=== PATIENT | male | born 1940 | race African-American/Black ===

== ENCOUNTER → 2016-12-22 | Outpatient (CLI) | payer OTHER ==
[~2016-12-22] MED LIST: GADOBUTROL 10 ML VIAL IVP ONE
== END ==
LOC: FIMAGING 09:52
PROVIDERS: ATTEND Internal Medicine Hematology & Oncology
DX: Z85.72 Personal history of non-Hodgkin lymphomas (principal); Z92.21 Personal history of antineoplastic chemotherapy; Z92.3 Personal history of irradiation
CPT/HCPCS: 70553; A9585

== ENCOUNTER → 2017-03-20 | Outpatient (CLI) | payer OTHER ==
[2017-03-20 08:53] LABS: GLOMERULAR FILTRATION RATE > 60
== END ==
LOC: FIMAGING 07:29
PROVIDERS: ATTEND Internal Medicine Hematology & Oncology
DX: G93.89 Other specified disorders of brain (principal); C85.89 Other specified types of non-Hodgkin lymphoma, extranodal and solid organ sites; C83.39 Diffuse large B-cell lymphoma, extranodal and solid organ sites
CPT/HCPCS: 70553; A9585; J1642

== ENCOUNTER → 2017-03-28 | Outpatient (CLI) | payer OTHER | LOC: BHFA 14:00 | PROVIDERS: ATTEND Internal Medicine Cardiovascular Disease | DX: I48.0 Paroxysmal atrial fibrillation (principal); I45.10 Unspecified right bundle-branch block ==

== ENCOUNTER → 2017-04-11 | Outpatient (CLI) | payer OTHER | LOC: BHFA 08:30 | PROVIDERS: ATTEND Internal Medicine | DX: I48.91 Unspecified atrial fibrillation (principal) ==

== ENCOUNTER → 2017-06-18 | Outpatient (CLI) | payer OTHER | LOC: FIMAGING 08:35 | PROVIDERS: ATTEND Internal Medicine Hematology & Oncology | DX: C85.90 Non-Hodgkin lymphoma, unspecified, unspecified site (principal) | CPT/HCPCS: 70553; A9585 ==

== ENCOUNTER → 2017-09-18 | Outpatient (CLI) | payer OTHER | LOC: FIMAGING 12:36 | PROVIDERS: ATTEND Internal Medicine Hematology & Oncology | DX: C85.89 Other specified types of non-Hodgkin lymphoma, extranodal and solid organ sites (principal); G93.89 Other specified disorders of brain | CPT/HCPCS: 70553; A9585 ==

== ENCOUNTER → 2018-03-19 | Outpatient (CLI) | payer OTHER | LOC: FIMAGING 07:49 | PROVIDERS: ATTEND Internal Medicine Hematology & Oncology | DX: G31.9 Degenerative disease of nervous system, unspecified (principal); G93.89 Other specified disorders of brain; C85.89 Other specified types of non-Hodgkin lymphoma, extranodal and solid organ sites; C79.31 Secondary malignant neoplasm of brain | CPT/HCPCS: 70553; A9585; J1642 ==

== ENCOUNTER → 2018-05-15 | Outpatient (CLI) | payer OTHER | LOC: BHFA 14:45 | PROVIDERS: ATTEND Internal Medicine Cardiovascular Disease | DX: I48.91 Unspecified atrial fibrillation (principal); I45.10 Unspecified right bundle-branch block ==

== ENCOUNTER → 2018-07-17 | Outpatient (CLI) | payer OTHER | LOC: BMCIMAGING 13:50 | PROVIDERS: ATTEND Orthopaedic Surgery | DX: M17.11 Unilateral primary osteoarthritis, right knee (principal); M25.761 Osteophyte, right knee; M71.21 Synovial cyst of popliteal space [Baker], right knee ==

== ENCOUNTER → 2018-08-14 | Outpatient (CLI) | payer OTHER | LOC: FIMAGING 10:00 | PROVIDERS: ATTEND Orthopaedic Surgery | DX: M17.11 Unilateral primary osteoarthritis, right knee (principal) ==

== ENCOUNTER 2018-08-30 05:48 | Inpatient (IN) | payer OTHER ==
[2018-08-30] MEDS ORDERED: TRANEXAMIC ACID 2,000 MG in NS 100 ML IV ONE (06:00)
[2018-08-30] MEDS ORDERED: ROPIVACAINE 0.2% 80 MG, EPINEPHrine 0.2 MG, KETOROLAC TROMETHAMINE 30 MG, morphINE 10 M... IU ONE (06:00)
[2018-08-30] MEDS ORDERED: TRANEXAMIC ACID 1,000 MG in NS 100 ML IV ONE (06:00)
[2018-08-30] MEDS ORDERED: ceFAZolin 2 GM/DEXTROSE 100 ML IV ONE (06:03)
[2018-08-30] MEDS ORDERED: FAMOTIDINE 20 MG TAB PO ONE (06:03)
[2018-08-30] MEDS ORDERED: ACETAMINOPHEN 325 MG TAB PO ONE (06:03)
[2018-08-30] MEDS ORDERED: LR 1,000 ML IV ONE (06:04)
[2018-08-30] MEDS ORDERED: NS 1,000 ML IV ONE (06:11)
--- NOTE | 2018-08-30 06:14 | PDHPUP ---
History & Physical Update H&P update statement: This history and physical update is based on an assessment of the patient which was completed after admission or registration (within 24 hours), but prior to the surgery/procedure. H&P update: no change in patient's condition since H&P completed
--- NOTE | 2018-08-30 06:15 | PDIAF ---
- Diagnosis Diagnosis: right knee djd Code Status: Full Code - Medication Management Discharge Medications: Medications to Continue on Transfer Loratadine [Claritin 10 mg] 10 mg PO DAILY@12 PRN 05/16/15 [Last Taken Unknown] Multivitamins [Multivitamin (*)] 1 each PO DAILY@05/16/15 [Last Taken ] Tamsulosin HCl [Flomax 0.4 MG (*)] 0.8 mg PO DAILY@05/16/15 [Last Taken 05/16] Acetaminophen [Tylenol ES 500 mg (*)] 1,000 mg PO TID PRN 08/07/18 [Last Taken Unknown] Cholecalciferol Vit D3 [Vitamin D3 2000 units tab (OTC)] 2,000 units PO DAILY [Last Taken Unknown] Guaifenesin PRN 08/07/18 [Last Taken Unknown] Metoprolol Succinate 50 mg PO DAILY@12 08/07/18 [Last Taken Unknown] Warfarin Sodium [Coumadin 7.5MG (*)] 7.5 mg PO DAILY@08/07/18 [Last Taken Unknown] Discharge Medications: Refer to the Discharge Home Medication list for PRN reason. - Orders Services needed: Home Care, Physical Therapy Home Care Face to Face: I certify that this patient was under my care and that I had the required [id number] encounter meeting the encounter requirements on the discharge day. My findings support the fact that the patient is homebound as defined in Home Care Face to Face Continued: CMS Chapter 7 Medicare Benefits Manual 30.1.1 , The condition of the patient is such that there exists a normal inability to leave home and consequently, leaving home would require a considerable and taxing effort. Isolation Type: None Diet Recommendation: no restrictions on diet Diet Texture: Regular Texture Diet Additional Instructions: TOTAL JOINT ARTHROPLASTY DISCHARGE INSTRUCTIONS 1. Your surgeon follows the [facility] protocol for reducing your risk of DVT (blood clots) following surgery. Medication will be ordered to prevent blood clots. A sudden increase in calf pain and/or swelling could indicate a blood clot in your leg. If this occurs, please call your surgeon or his/her administrative sales assistant. An ultrasound of the leg may be necessary to diagnose a blood clot. If you have conditions that make you a higher risk for blood clots, your surgeon may use more aggressive ways to prevent them. Notify your surgeon if you think you are a high risk for blood clots. 2. Wear your white surgical stockings (ALENA hose) for 2 weeks. This decreases your swelling and may help prevent blood clots. It is ok to remove ALENA hose at night time to give your legs a break. 3. Swelling and bruising in the surgical leg is common. If you feel that it is excessive, please notify your surgeon. 4. Elevate your surgical leg with the ankle above the hip several times every day. Please keep the leg straight when you elevate by putting pillows under your foot. Do not put pillows under your knee. This will make being able to fully straighten more difficult. This is uncomfortable, but try to do it as much as possible. 5. For total knee replacements use compressive wrap on your knee for 3-5 days after surgery, then you can discontinue it. 6. Use a walker or crutches for 1-2 weeks. Progress your weight-bearing as tolerated. You may start to use a cane when you feel stable and safe. 7. You will receive physical therapy instructions in the hospital. Continue those exercises at home. There are additional exercises in the total joint booklet you were given before surgery. Outpatient physical therapy will begin 7- 10 days after surgery. Please schedule this in advance. 8. Use ice on your knee at least 3-5 times every day for 30 minutes. This helps reduce pain and swelling. Also use it at night before falling asleep. 9. Leave your surgical dressing in place for 2 weeks. Your dressing is water resistant, but not waterproof. Cover it with Saran Wrap or [id number] before showering. You may shower as soon as you feel safe entering a shower. If you notice bleeding from your incision 2 or 3 days after surgery, please notify your surgeon. 10. Due to narcotics, decreased activity and altered diet, most patients experience constipation after surgery. Use [id number] stool softeners while you are on narcotics. 11. You may drive a car when you are comfortable bearing weight, have good muscular control of your leg and are off narcotics. This usually occurs 2-4 weeks after surgery, depending on which leg was operated on. 12. If there are questions not addressed here, please refer the [facility] book given for more information. If you still have questions, please contact your surgeon s office. 13. If you have a life-threatening emergency, please call 911 and go to the emergency room immediately. For non-life threatening emergencies, please call your physicians office for advice before going to the emergency room. - Follow Up Care Current Providers and Referrals: Praneeth Juarez MD [Medical Doctor] - Oumou Landers MD [Primary Care Provider] -
[2018-08-30] MEDS ORDERED: ceFAZolin 1 GM/5 ML SYR ONE (07:56)
[2018-08-30] MEDS ORDERED: THROMBIN (BOVINE) 5,000 UNIT VIAL TP ONE (07:56)
[2018-08-30] MEDS ORDERED: CALCIUM CHLORIDE 1 GM/10 ML INJ ONE (07:56)
[2018-08-30 08:09] LABS: INR 1.18 (0.83-1.16); PROTIME(PATIENT) 15.2 SEC (12.0-15.0)
[2018-08-30] MEDS ORDERED: MIDAZOLAM 2 MG/2 ML VIAL ONE (08:43)
[2018-08-30] MEDS ORDERED: MIDAZOLAM 2 MG/2 ML VIAL IVP ONE (08:43)
--- NOTE | 2018-08-30 08:44 | PDANEPAE ---
ANE Past Medical History - Cardiovascular History Hx Hypertension: No Hx Arrhythmias: No Hx Chest Pain: No Hx Coronary Artery / Peripheral Vascular Disease: No Hx CHF / Valvular Disease: No Hx Palpitations: No Cardiovascular History Comment: A-FIB. RBBB - Pulmonary History Hx COPD: No Hx Asthma/Reactive Airway Disease: No Hx Recent Upper Respiratory Infection: No Hx Oxygen in Use at Home: No Hx Sleep Apnea: No Sleep Apnea Screening Result - Last Documented: Negative Pulmonary History Comment: RECENT SOB - Neurologic History Hx Cerebrovascular Accident: No Hx Seizures: No Hx Dementia: No - Endocrine History Hx Diabetes: No - Renal History Hx Renal Disorders: Yes Renal History Comment: BPH. RENAL FAILURE IN NOVEMBER. HYPERCALCEMIA - Liver History Hx Hepatic Disorders: No - Neurological & Psychiatric Hx Hx Neurological and Psychiatric Disorders: No Neurological / Psychiatric History Comment: 01/2015 LT SIDED FACIAL DROOPING. LT ARM/HAND SWELLING BRAIN TUMORS. TREATED WITH CHEMO AND RADIATION - Cancer History Hx Cancer: Yes Cancer History Comment: CURRENT GASTRIC LYMPHOMA - Congenital Disorder History Hx Congenital Disorders: No - GI History Hx Gastrointestinal Disorders: Yes Gastrointestinal History Comment: GASTRIC LYMPHOMA. NON- HODGKINS LYMPHOMA - Other Health History Other Health History: NONE - Chronic Pain History Chronic Pain: No - Surgical History Prior Surgeries: 1996 RUPTURED DISC SURGERY CONSCIOUS SEDATION WITH BONE MARROW BIOPSY ANE Review of Systems Review of Systems: - Exercise capacity METS (RN): 4 METS ANE Patient History - Allergies Allergies/Adverse Reactions: No Allergies [NKA] Allergy (Verified 01/26/15 16:43) - Home Medications Home medications: home medication list seen and reviewed Home Medications: Loratadine [Claritin 10 mg] 10 mg PO DAILY@12 PRN 05/16/15 [Last Taken 08/24/18] Multivitamins [Multivitamin (*)] 1 each PO DAILY@05/16/15 [Last Taken ] Tamsulosin HCl [Flomax 0.4 MG (*)] 0.8 mg PO DAILY@05/16/15 [Last Taken 08/29] Acetaminophen [Tylenol ES 500 mg (*)] 1,000 mg PO TID PRN 08/07/18 [Last Taken 08/24/18] Cholecalciferol Vit D3 [Vitamin D3 2000 units tab (OTC)] 2,000 units PO DAILY [Last Taken 08/24/18] Metoprolol Succinate 50 mg PO DAILY@12 08/07/18 [Last Taken 08/29/18] Warfarin Sodium [Coumadin 7.5MG (*)] 7.5 mg PO DAILY@12 08/07/18 [Last Taken ] guaiFENesin [Mucinex 600 MG (*)] 600 mg PO BID PRN 08/07/18 [Last Taken 08/24/18 ] - NPO status NPO Status: no food or drink >8 hours NPO Since - Liquids (Date): 08/30/18 NPO Since - Liquids (Time): 02:00 NPO Since - Solids (Date): 08/29/18 NPO Since - Solids (Time): 19:30 - Anes Hx Anes Hx: no prior problems - Smoking Hx Smoking Status: Former smoker - Family Anes Hx Family Hx Anesthesia Complications: NONE ANE Labs/Vital Signs - Vital Signs Blood Pressure: 150/84 Heart Rate: 62 Respiratory Rate: 18 O2 Sat (%): 96 Height: 182.88 cm Weight: 112.491 kg ANE Physical Exam - Airway Neck exam: FROM Mallampati Score: Class 3 Mouth exam: dentures - Pulmonary Pulmonary: no respiratory distress, no rales or rhonchi, clear to auscultation - Cardiovascular Cardiovascular: regular rate and rhythym, no murmur, rub, or gallop - ASA Status ASA Status: III ANE Anesthesia Plan Anesthesia Plan: spinal Regional Anesthesia: adductor canal FNB
[2018-08-30] MEDS ORDERED: fentaNYL 100 MCG/2 ML INJ ONE (08:53)
[2018-08-30] MEDS ORDERED: PROPOFOL/EMULSION 500 MG/50 ML BOTTLE IV ONE (08:53)
[2018-08-30] MEDS ORDERED: DEXAMETHASONE 4 MG/ML VIAL ONE ×2 (08:54)
[2018-08-30] MEDS ORDERED: BUPIVACAINE 0.75% 10 ML SDV ONE (08:54)
[2018-08-30] MEDS ORDERED: BUPIVACAINE/EPI 0.5% 30 ML SDV ONE (08:54)
[2018-08-30] MEDS ORDERED: ENALAPRILAT DIHYDRATE 1.25 MG/ML VIAL IVP PRN (10:15)
[2018-08-30] MEDS ORDERED: ONDANSETRON 4 MG/2 ML VIAL IVP PRN ×2 (10:15→11:59)
[2018-08-30] MEDS ORDERED: fentaNYL 100 MCG/2 ML INJ IVP PRN (10:15)
[2018-08-30] MEDS ORDERED: PROMETHAZINE HCL 25 MG/ML INJ IVP PRN ×2 (10:15→11:59)
[2018-08-30] MEDS ORDERED: HYDROCODONE/APAP 5/325 TAB PO PRN (10:15)
[2018-08-30] MEDS ORDERED: NALOXONE HCL 0.4 MG/ML INJ IVP PRN (10:15)
[2018-08-30] MEDS ORDERED: LABETALOL HCL 5 MG/ML 20 ML MDV IVP PRN (10:15)
[2018-08-30] MEDS ORDERED: ACETAMINOPHEN 500 MG TAB PO PRN (10:15)
[2018-08-30] MEDS ORDERED: LR 500 ML IV PRN (10:15)
[2018-08-30] MEDS ORDERED: oxyCODONE IR 5 MG TAB PO PRN (10:15)
--- NOTE | 2018-08-30 11:31 | POSTANESTH ---
Post Anesthetic Evaluation Cardiovascular Status: Normal, Stable Respiratory Status: Normal, Stable, Similar to Pre-op Cond. Level of Consciousness/Mental Status: Can Participate in Eval, Mildly Sleepy, Arousable Pain Control: Adequate, Prn Tx Ordered Nausea/Vomiting Control: Adequate, Prn Tx Ordered Complications Possibly Related to Anesthesia: None Noted (Rt adductor canal nerve block performed in PACU.)
[2018-08-30] MEDS ORDERED: POLYETHYLENE GLYCOL 3350 17 GM PKT PO PRN (11:59)
[2018-08-30] MEDS ORDERED: BISACODYL 10 MG SUPP PR PRN (11:59)
[2018-08-30] MEDS ORDERED: DIPHENOXYLATE/ATROPINE LOMOTIL 1 TAB PO PRN (11:59)
[2018-08-30] MEDS ORDERED: PROMETHAZINE HCL 25 MG SUPPR PR PRN (11:59)
[2018-08-30] MEDS ORDERED: METOCLOPRAMIDE 10 MG/2 ML VIAL IVP PRN (11:59)
[2018-08-30] MEDS ORDERED: diphenhydrAMINE 25 MG CAP PO PRN (11:59)
[2018-08-30] MEDS ORDERED: TEMAZEPAM 15 MG CAP PO PRN (11:59)
[2018-08-30] MEDS ORDERED: ONDANSETRON DISINTEGRATING 4 MG TAB PO PRN (11:59)
[2018-08-30] MEDS ORDERED: CYCLOBENZAPRINE 10 MG TAB PO PRN (11:59)
[2018-08-30] MEDS ORDERED: LACTULOSE 20 GM/30 ML UDCUP PO PRN (11:59)
[2018-08-30] MEDS ORDERED: MAGNESIUM HYDROXIDE 30 ML UDCUP PO PRN (11:59)
--- NOTE | 2018-08-30 11:59 | POSTOPPROG ---
Post Op Note Date of Operation: 08/30/18 Surgeon: Praneeth Juarez Automobile Tester: beto Anesthesiologist: reynaldo Anesthesia: Spinal Pre-op Diagnosis: right knee djd Post-op Diagnosis: same Indication: same Procedure: right tka Inf/Abcess present in the surg proc area at time of surgery?: No Depth: Deep Incisional (Fascial) EBL: 100-500 (cemented tibia)
[2018-08-30] MEDS ORDERED: LR 1,000 ML IV SCH (12:00)
[2018-08-30] MEDS ORDERED: guaiFENesin 600 MG TAB.ER PO PRN (12:00)
[2018-08-30] MEDS: TAMSULOSIN HCL 0.4 MG CAP PO SCH (13:13)
[2018-08-30] MEDS: ACETAMINOPHEN 325 MG TAB PO SCH ×2 (13:13→17:30)
[2018-08-30] MEDS: METOPROLOL SUCCINATE XR 50 MG TAB PO SCH (13:14)
[2018-08-30] MEDS: TRANEXAMIC ACID 650 MG TAB PO SCH ×2 (13:14→21:24)
[2018-08-30] MEDS: oxyCODONE IR 5 MG TAB PO PRN ×3 (15:58→21:24)
[2018-08-30] MEDS: ceFAZolin 2 GM/DEXTROSE 100 ML IV SCH (16:34)
[2018-08-30] MEDS ORDERED: ASPIRIN 325 MG TAB PO SCH (21:00)
[2018-08-30] MEDS: FAMOTIDINE 20 MG TAB PO SCH (21:22)
[2018-08-30] MEDS: SENNOSIDES/DOCUSATE SODIUM TAB PO SCH (21:23)
--- NOTE | 2018-08-30 23:30 | PDMN ---
Medical Necessity Medical necessity: Pt meets INPT criteria per and [facility] [place]thro[place] , Total (est. LOS >2 MN for eval/mgmt s/p R TKA; hx htn, parox afib, PE, lymphoma, age >65).
[2018-08-31] MEDS: ceFAZolin 2 GM/DEXTROSE 100 ML IV SCH (00:40)
[2018-08-31] MEDS: ACETAMINOPHEN 325 MG TAB PO SCH ×5 (00:40→23:20)
[2018-08-31] MEDS: TRANEXAMIC ACID 650 MG TAB PO SCH (04:47)
[2018-08-31] MEDS: oxyCODONE IR 5 MG TAB PO PRN ×2 (04:47→18:04)
--- NOTE | 2018-08-31 08:57 | SOAPPROG ---
SOAP Progress Note Assessment/Plan: Assessment: s/p tka Plan:bleeding yest dressing reinforced continue pressure dressing dvt precautions will resume lovenox and coumadin today as high risk for dvt d/c home after cleared by pt minimal narcotics reviewed constipation issues with narcotics 08/31/18 08:54 Subjective: min complaints min pain no cp or sob Objective: Vital Signs Temp Pulse Resp BP Pulse Ox 36.8 C 72 18 132/78 H 88 L 08/31/18 07:24 08/31/18 07:24 08/31/18 07:24 08/31/18 07:24 08/31/18 07:24 Laboratory Results 08/31/18 04:40 08/30/18 08/31/18 09/01/18 05:59 05:59 05:59 Intake Total 2400 Output Total 1440 Balance 960 PT 15.2 SEC (12.0-15.0) H 08/30/18 07:45 INR 1.18 (0.83-1.16) H 08/30/18 07:45 somnolent but arouses easily minimal active rom to right lower ext dressing with serrous drainage intact pdf,ehl toes warm and pink neg homans juan xrays stable anatomic alignment ICD10 Worksheet Patient Problems: Problems Problem Status Onset Pneumonia Acute 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
[2018-08-31] MEDS ORDERED: CETIRIZINE 10 MG TAB PO PRN (09:00)
[2018-08-31] MEDS: SENNOSIDES/DOCUSATE SODIUM TAB PO SCH ×2 (09:37→20:30)
[2018-08-31] MEDS: ENOXAPARIN 30 MG/0.3 ML SYR SC SCH ×2 (09:38→20:29)
[2018-08-31] MEDS: FAMOTIDINE 20 MG TAB PO SCH ×2 (09:38→20:29)
[2018-08-31] MEDS: TAMSULOSIN HCL 0.4 MG CAP PO SCH (12:28)
[2018-08-31] MEDS: METOPROLOL SUCCINATE XR 50 MG TAB PO SCH (12:28)
[2018-08-31] MEDS ORDERED: ALBUTEROL 3 ML DEYVIAL IH PRN (15:58)
[2018-08-31] MEDS ORDERED: WARFARIN SODIUM 7.5 MG TAB PO ONE (16:00)
--- NOTE | 2018-08-31 17:00 | GCON ---
DATE OF CONSULTATION: 08/31/2018 HISTORY OF PRESENT ILLNESS: The patient is a pleasant 77-year-old gentleman with history of Hodgkin lymphoma, now in remission, as well as atrial fibrillation and history of pulmonary embolism, who is postoperative day 1, status post a total knee arthroplasty. He is currently feeling well, with knee pain reasonably well controlled. He has been ambulatory. He does have some wheezing and coughing. It sounds like he takes Mucinex on a relatively frequent basis. He has passed gas but not had a bowel movement. He is not short of breath. He is not having any pal pitations or chest pain. His B-cell lymphoma is currently in remission. REVIEW OF SYSTEMS: Complete 10-point review of systems was conducted and negative, except as noted i n the HPI. PAST MEDICAL HISTORY: 1. Hodgkin B-cell lymphoma, status post chemotherapy and radiation. He did have mets to the brain t hat resolved with radiation. 2. History of paroxysmal atrial fibrillation. 3. History of pulmonary embolism with deep vein thrombosis in 2014, on Coumadin therapy. 4. History of pneumonia. 5. BPH. ALLERGIES: No known drug allergies. HOME MEDICATIONS: Tylenol, vitamin D3, multivitamin, warfarin, guaifenesin, loratadine, metoprolol 5 0, tamsulosin. SOCIAL HISTORY: No tobacco. No alcohol. Originally from the [place]. FAMILY HISTORY: Reviewed and unremarkable. PHYSICAL EXAMINATION: VITAL SIGNS: Temp 36.8, blood pressure 103/57, pulse 76, breathing 16 times a minute, 94% on 2 L. GENERAL: No acute distress. HEENT: Sclerae anicteric. Oropharynx clear. Muc ous membranes are moist. NECK: Supple, without lymphadenopathy or JVD. LUNGS: Clear to auscultati on bilaterally. HEART: S1, S2. Regular. ABDOMEN: Soft, nontender, nondistended. LOWER EXTREMITI ES: His right knee is in an ice sleeve, otherwise unremarkable. LABS: Hematocrit 38.1. INR yesterday was 1.2. There is no imaging. Yesterday's knee x-ray showed knee arthroplasty with no complications. I have discussed the case with Dr. Jong Juarez. ASSESSMENT AND PLAN: A 77-year-old gentleman here with knee arthroplasty. 1. History of venous thromboembolism and atrial fibrillation. The patient needs his warfarin restar rivera, which has been done. He is currently on high risk prophylactic dose with enoxaparin 30 b.i.d. I think this is a good strategy for managing him with bridging therapy. 2. Atrial fibrillation. Will continue with metoprolol. His anticoagulation is being re-initiated. 3. History of Hodgkin lymphoma, in remission. 4. Wheezing. The patient has guaifenesin written for. I have added albuterol nebulizers. He was n ot wheezing on my exam. Pain currently well controlled. DISPOSITION: Inpatient status. Thank you for this consultation. [facility] will follow. /[id number]/MODL
[2018-08-31] MEDS: guaiFENesin 600 MG TAB.ER PO SCH (20:30)
[2018-09-01] MEDS: oxyCODONE IR 5 MG TAB PO PRN (01:55)
[2018-09-01] MEDS: ACETAMINOPHEN 325 MG TAB PO SCH ×4 (06:37→23:32)
[2018-09-01 06:57] LABS: INR 1.31 (0.83-1.16); PROTIME(PATIENT) 16.5 SEC (12.0-15.0)
[2018-09-01] MEDS: FAMOTIDINE 20 MG TAB PO SCH ×2 (08:28→21:34)
[2018-09-01] MEDS: SENNOSIDES/DOCUSATE SODIUM TAB PO SCH ×2 (08:28→21:33)
[2018-09-01] MEDS: guaiFENesin 600 MG TAB.ER PO SCH ×2 (08:29→21:34)
[2018-09-01] MEDS: ENOXAPARIN 30 MG/0.3 ML SYR SC SCH ×2 (08:29→21:33)
--- NOTE | 2018-09-01 11:31 | HOSPPROG ---
Hospitalist Progress Note Assessment/Plan: 77 yo M w AF, h/o VTE and lymphoma in remission pod 2 s/p TKA TKA; PT/OT AF: continue BB clinically in sinus warfarin restarted proph: agree w bid lovenox and warfarin restart fiollow inr daily pain: well controlled AHRF: likely atelectasis add IS Subjective: up and moving this AM. pain reasonably well controlled Objective: Vital Signs Temp Pulse Resp BP Pulse Ox 36.8 C 67 18 144/86 H 91 L 09/01/18 07:31 09/01/18 07:31 09/01/18 07:31 09/01/18 07:31 09/01/18 07:31 Laboratory Results 09/01/18 06:00 08/31/18 09/01/18 09/02/18 05:59 05:59 05:59 Intake Total 2400 1000 Output Total 1440 850 Balance 960 150 PT 16.5 SEC (12.0-15.0) H 09/01/18 06:00 INR 1.31 (0.83-1.16) H 09/01/18 06:00 - Physical Exam Constitutional: no apparent distress, appears nourished Eyes: PERRL, anicteric sclera Ears, Nose, Mouth, Throat: moist mucous membranes, hearing normal Cardiovascular: regular rate and rhythym, no murmur, rub, or gallop Respiratory: no respiratory distress, no rales or rhonchi Gastrointestinal: normoactive bowel sounds, soft, non-tender abdomen Genitourinary: No collins in urethra Skin: warm, normal color Musculoskeletal: no muscle tenderness, No full muscle strength Neurologic: AAOx3 Psychiatric: interacting appropriately ICD10 Worksheet Patient Problems: Problems Problem Status Onset Pneumonia Acute 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
[2018-09-01] MEDS: TAMSULOSIN HCL 0.4 MG CAP PO SCH (12:10)
[2018-09-01] MEDS: METOPROLOL SUCCINATE XR 50 MG TAB PO SCH (12:10)
[2018-09-01] MEDS: WARFARIN SODIUM 7.5 MG TAB PO SCH (12:11)
--- NOTE | 2018-09-01 15:43 | ASMTCMCOM ---
CM Note CM Note Notes: Pt is a 77 y/o man admitted for a total knee. PT is recommending HC vs SNF. CM met w/ pt and for dispo planning. reports that pt will most likely do HC. Pt and would like to see how he does in the coming days. CM provided pts w/ senior blue book and HC agencies. CM to follow. Plan: HC vs SNF Note written by Moriah Dubois RN, note saved on Moriah's behalf by this CM Date Signed: 09/01/2018 03:42 PM Electronically Signed By:Teresa Antunez RN
--- NOTE | 2018-09-01 15:49 | ASMTCMCOM ---
CM Note CM Note Notes: Reviewed chart regarding discharge plan of care, pt's progress. MARIE Eric, CM met with pt to further discuss plan. Pt is a 2 max assist and reports being unable to assist pt at this time due to her own health issues. PT recommends SNF vs HC, OT recommends home with no needs. Pt and family requesting SNF placement at this time. [facility]. Pt's first choice is [facility], second choice is [facility]. Pt will likely be ready for discharge Monday09/02/18. CM will continue to follow. Discharge Plan: SNF Rehab Date Signed: 09/01/2018 03:48 PM Electronically Signed By:Teresa Antunez RN
[2018-09-02] MEDS: ACETAMINOPHEN 325 MG TAB PO SCH ×4 (06:09→22:32)
[2018-09-02 07:01] LABS: INR 1.31 (0.83-1.16); PROTIME(PATIENT) 16.5 SEC (12.0-15.0)
--- NOTE | 2018-09-02 08:16 | SOAPPROG ---
SOAP Progress Note Assessment/Plan: Assessment: s/p tka Plan:bleeding yest dressing reinforced continue pressure dressing dvt precautions will resume lovenox and coumadin today as high risk for dvt d/c home after cleared by pt reviewed constipation issues with narcotics d/c all narcotics spoke at length about effort with pt to get up and move oob. he will need long-term currently. d/c tomorrow to long-term 08/31/18 08:54 09/02/18 08:14 Subjective: mild pain no cp or sob no new complaints no numbness Objective: Vital Signs Temp Pulse Resp BP Pulse Ox 37.1 C 107 H 16 129/76 H 94 09/02/18 00:00 09/02/18 00:00 09/02/18 00:00 09/02/18 00:00 09/02/18 00:00 Laboratory Results 09/01/18 06:00 09/01/18 09/02/18 09/03/18 05:59 05:59 05:59 Intake Total 1000 725 Output Total 850 750 Balance 150 -25 PT 16.5 SEC (12.0-15.0) H 09/02/18 05:00 INR 1.31 (0.83-1.16) H 09/02/18 05:00 dressing intact intact pdf,ehl toes warm and pink neg homans juan 4/5 hip flexion somnolent, eyes close during conversation, more alert than 48 hours ago ICD10 Worksheet Patient Problems: Problems Problem Status Onset Pneumonia Acute 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
[2018-09-02] MEDS: FAMOTIDINE 20 MG TAB PO SCH ×2 (09:30→22:32)
[2018-09-02] MEDS: guaiFENesin 600 MG TAB.ER PO SCH ×2 (09:30→22:32)
[2018-09-02] MEDS: ENOXAPARIN 30 MG/0.3 ML SYR SC SCH ×2 (09:30→22:32)
[2018-09-02] MEDS: SENNOSIDES/DOCUSATE SODIUM TAB PO SCH ×2 (09:30→22:31)
[2018-09-02] MEDS: TAMSULOSIN HCL 0.4 MG CAP PO SCH (12:15)
[2018-09-02] MEDS: METOPROLOL SUCCINATE XR 50 MG TAB PO SCH (12:15)
[2018-09-02] MEDS: WARFARIN SODIUM 7.5 MG TAB PO SCH (12:16)
--- NOTE | 2018-09-02 15:19 | HOSPPROG ---
Hospitalist Progress Note Assessment/Plan: 77 yo M w AF, h/o VTE and lymphoma in remission pod 2 s/p TKA TKA; PT/OT AF: continue BB clinically in sinus warfarin restarted proph: agree w bid lovenox and warfarin restart fiollow inr daily pain: well controlled AHRF: likely atelectasis add IS Subjective: pain ok. struggling w activity Objective: Vital Signs Temp Pulse Resp BP Pulse Ox 37.1 C 108 H 18 152/81 H 95 09/02/18 00:00 09/02/18 08:00 09/02/18 08:00 09/02/18 08:00 09/02/18 08:00 Laboratory Results 09/01/18 06:00 09/01/18 09/02/18 09/03/18 05:59 05:59 05:59 Intake Total 1000 725 Output Total 850 750 Balance 150 -25 PT 16.5 SEC (12.0-15.0) H 09/02/18 05:00 INR 1.31 (0.83-1.16) H 09/02/18 05:00 - Physical Exam Constitutional: no apparent distress, appears nourished Eyes: PERRL, anicteric sclera Ears, Nose, Mouth, Throat: moist mucous membranes, hearing normal Cardiovascular: regular rate and rhythym, no murmur, rub, or gallop Respiratory: no respiratory distress, no rales or rhonchi Gastrointestinal: normoactive bowel sounds, soft, non-tender abdomen Genitourinary: No collins in urethra Skin: warm, normal color Musculoskeletal: full muscle strength Neurologic: AAOx3 ICD10 Worksheet Patient Problems: Problems Problem Status Onset Pneumonia Acute 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
--- NOTE | 2018-09-02 17:41 | ASMTCMCOM ---
CM Note CM Note Notes: Probable d/c Monday. Updated pt info to 's. [facility] 1st choice. Date Signed: 09/02/2018 05:40 PM Electronically Signed By:Aniyah Pearson LCSW
[2018-09-03] MEDS: ACETAMINOPHEN 325 MG TAB PO SCH ×2 (05:11→13:01)
[2018-09-03 05:37] LABS: INR 1.41 (0.83-1.16); PROTIME(PATIENT) 17.4 SEC (12.0-15.0)
--- NOTE | 2018-09-03 06:25 | PDIAF ---
- Diagnosis Diagnosis: right knee djd Code Status: Full Code - Medication Management Discharge Medications: Medications to Continue on Transfer Loratadine [Claritin 10 mg] 10 mg PO DAILY@12 PRN 05/16/15 [Last Taken 08/24/18] Multivitamins [Multivitamin (*)] 1 each PO DAILY@12 05/16/15 [Last Taken ] Tamsulosin HCl [Flomax 0.4 MG (*)] 0.8 mg PO DAILY@12 05/16/15 [Last Taken 08/29] Acetaminophen [Tylenol ES 500 mg (*)] 1,000 mg PO TID PRN 08/07/18 [Last Taken 08/24/18] Cholecalciferol Vit D3 [Vitamin D3 2000 units tab (OTC)] 2,000 units PO DAILY [Last Taken 08/24/18] Metoprolol Succinate 50 mg PO DAILY@12 08/07/18 [Last Taken 08/29/18] Warfarin Sodium [Coumadin 7.5MG (*)] 7.5 mg PO DAILY@12 08/07/18 [Last Taken ] guaiFENesin [Mucinex 600 MG (*)] 600 mg PO BID PRN 08/07/18 [Last Taken 08/24/18 ] Enoxaparin [Lovenox] 30 mg SC BID syr 08/31/18 [Last Taken Unknown] Warfarin Sodium [Coumadin 7.5MG (*)] 7.5 mg PO ONCE@16 tab 08/31/18 [Last Taken Unknown] Discharge Medications: Refer to the Discharge Home Medication list for PRN reason. - Orders Services needed: Home Care, Registered Nurse, Physical Therapy Home Care Face to Face: I certify that this patient was under my care and that I had the required [id number] encounter meeting the encounter requirements on the discharge day. My findings support the fact that the patient is homebound as defined in Home Care Face to Face Continued: CMS Chapter 7 Medicare Benefits Manual 30.1.1 , The condition of the patient is such that there exists a normal inability to leave home and consequently, leaving home would require a considerable and taxing effort. Isolation Type: None Diet Recommendation: no restrictions on diet Diet Texture: Regular Texture Diet Additional Instructions: TOTAL JOINT ARTHROPLASTY DISCHARGE INSTRUCTIONS 1. Your surgeon follows the [facility] protocol for reducing your risk of DVT (blood clots) following surgery. Medication will be ordered to prevent blood clots. A sudden increase in calf pain and/or swelling could indicate a blood clot in your leg. If this occurs, please call your surgeon or his/her assistant tennis coach. An ultrasound of the leg may be necessary to diagnose a blood clot. If you have conditions that make you a higher risk for blood clots, your surgeon may use more aggressive ways to prevent them. Notify your surgeon if you think you are a high risk for blood clots. 2. Wear your white surgical stockings (ALENA hose) for 2 weeks. This decreases your swelling and may help prevent blood clots. It is ok to remove ALENA hose at night time to give your legs a break. 3. Swelling and bruising in the surgical leg is common. If you feel that it is excessive, please notify your surgeon. 4. Elevate your surgical leg with the ankle above the hip several times every day. Please keep the leg straight when you elevate by putting pillows under your foot. Do not put pillows under your knee. This will make being able to fully straighten more difficult. This is uncomfortable, but try to do it as much as possible. 5. For total knee replacements use compressive wrap on your knee for 3-5 days after surgery, then you can discontinue it. 6. Use a walker or crutches for 1-2 weeks. Progress your weight-bearing as tolerated. You may start to use a cane when you feel stable and safe. 7. You will receive physical therapy instructions in the hospital. Continue those exercises at home. There are additional exercises in the total joint booklet you were given before surgery. Outpatient physical therapy will begin 7- 10 days after surgery. Please schedule this in advance. 8. Use ice on your knee at least 3-5 times every day for 30 minutes. This helps reduce pain and swelling. Also use it at night before falling asleep. 9. Leave your surgical dressing in place for 2 weeks. Your dressing is water resistant, but not waterproof. Cover it with Saran Wrap or Hgsez-k-Owqz before showering. You may shower as soon as you feel safe entering a shower. If you notice bleeding from your incision 2 or 3 days after surgery, please notify your surgeon. 10. Due to narcotics, decreased activity and altered diet, most patients experience constipation after surgery. Use zclu-jti-[id number] stool softeners while you are on narcotics. 11. You may drive a car when you are comfortable bearing weight, have good muscular control of your leg and are off narcotics. This usually occurs 2-4 weeks after surgery, depending on which leg was operated on. 12. If there are questions not addressed here, please refer the [facility] book given for more information. If you still have questions, please contact your surgeon s office. 13. If you have a life-threatening emergency, please call 911 and go to the emergency room immediately. For non-life threatening emergencies, please call your physicians office for advice before going to the emergency room. - Labs/Radiology PT/INR Date: 09/04/18 (daily) - Follow Up Care Current Providers and Referrals: Praneeth Juarez MD [Medical Doctor] - Oumou Landers MD [Primary Care Provider] -
--- NOTE | 2018-09-03 06:26 | SOAPPROG ---
SOAP Progress Note Assessment/Plan: Assessment: s/p tka Plan:bleeding yest dressing reinforced continue pressure dressing dvt precautions will resume lovenox and coumadin today as high risk for dvt d/c home after cleared by pt reviewed constipation issues with narcotics d/c all narcotics spoke at length about effort with pt to get up and move oob. he will need half-way currently. d/c tomorrow to half-way to snf today 08/31/18 08:54 09/02/18 08:14 09/03/18 06:25 Subjective: less pain no cp or sob eduardo po no new co Objective: Vital Signs Temp Pulse Resp BP Pulse Ox 36.6 C 90 17 117/75 93 09/02/18 22:57 09/02/18 22:57 09/02/18 22:57 09/02/18 22:57 09/02/18 22:57 Laboratory Results 09/01/18 06:00 09/03/18 05:23 09/02/18 09/03/18 09/04/18 05:59 05:59 05:59 Intake Total 725 500 Output Total 750 525 Balance -25 -25 PT 17.4 SEC (12.0-15.0) H 09/03/18 05:23 INR 1.41 (0.83-1.16) H 09/03/18 05:23 dressing intact intact pf,df,ehl toes warm adn pink neg homans juan ICD10 Worksheet Patient Problems: Problems Problem Status Onset Pneumonia Acute 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
[2018-09-03] MEDS: guaiFENesin 600 MG TAB.ER PO SCH (08:13)
[2018-09-03] MEDS: ENOXAPARIN 30 MG/0.3 ML SYR SC SCH (08:14)
[2018-09-03] MEDS: FAMOTIDINE 20 MG TAB PO SCH (08:14)
[2018-09-03] MEDS: SENNOSIDES/DOCUSATE SODIUM TAB PO SCH (08:23)
[2018-09-03 10:00] VITALS: BP 106/74
--- NOTE | 2018-09-03 11:35 | ASMTLACE ---
LACE Length of stay for Answers: 4-6 days current admission Acuity / Level of Answers: Yes Care: Did the patient have an inpatient admission? Comorbidities - select Answers: Any tumor (including all that apply lymphoma or leukemia) Other Notes: AFib # of Emergency department Answers: 0 visits in the last 6 months Score: 10 Date Signed: 09/03/2018 11:34 AM Electronically Signed By:Kecia Barrera LCSW
--- NOTE | 2018-09-03 11:45 | ASDISCHSUM ---
Discharge Information Plan Status:SNF Medically Cleared to Leave:09/03/2018 Discharge Date:09/03/2018 CM D/C Disposition:Snf Facility ADT D/C Disposition:Snf Facility Projected Discharge Date:09/03/2018 11:00 AM Transportation at D/C:Other Discharge Delay Reason: Follow-Up Date:09/03/2018 11:00 AM Discharge Slot:2 - 12:01 pm - 18:00 pm Final Diagnosis:TKA Placement Information Referral Type:*Assisted/SNF Referral ID:[id number] Provider Name:[facility] Address 1:[address] Phone Number: Address 2: Fax Number: City:[place] Selection Factors: State:[place] Patient Contact Information Contact Name:HARISH Relationship: Address:[address] [facility] City:[place] Alternate Phone: State/Zip Code:[place] [address] Email: Financial Information Financial Class:Medicare Primary Plan Desc:MEDICARE INPATIENT Primary Plan Number:[id number] Secondary Plan Desc:HELEN LOVETT PPO Secondary Plan Number:[id number] Assessment Information LACE LACE Length of stay for Answers: 4-6 days current admission Acuity / Level of Answers: Yes Care: Did the patient have an inpatient admission? Comorbidities - select Answers: Any tumor (including all that apply lymphoma or leukemia) Other Notes: AFib # of Emergency department Answers: 0 visits in the last 6 months Score: 10 Date Signed: 09/03/2018 11:34 AM Electronically Signed By:Kecia Barrera LCSW [facility] CM Progress Note CM Note CM Note Notes: Pt is a 77 y/o man admitted for a total knee. PT is recommending HC vs SNF. CM met w/ pt and for dispo planning. reports that pt will most likely do HC. Pt and would like to see how he does in the coming days. CM provided pts w/ senior blue book and HC agencies. CM to follow. Plan: HC vs SNF Note written by Moriah Dubois RN, note saved on Moriah's behalf by this CM Date Signed: 09/01/2018 03:42 PM Electronically Signed By:Teresa Antunez RN [facility] DANIEL Progress Note CM Note CM Note Notes: Reviewed chart regarding discharge plan of care, pt's progress. MARIE Eric, CM met with pt to further discuss plan. Pt is a 2 max assist and reports being unable to assist pt at this time due to her own health issues. PT recommends SNF vs HC, OT recommends home with no needs. Pt and family requesting SNF placement at this time. Referrals faxed to [facility] and [facility]. Pt's first choice is [facility], second choice is [facility]. Pt will likely be ready for discharge Monday09/02/18. CM will continue to follow. Discharge Plan: SNF Rehab Date Signed: 09/01/2018 03:48 PM Electronically Signed By:Teresa Antunez RN [facility] DANIEL Progress Note DANEIL Note DANIEL Note Notes: Probable d/c Monday. Updated pt info to [facility]'s. [facility] 1st choice. Date Signed: 09/02/2018 05:40 PM Electronically Signed By:Aniyah Pearson LCSW Case Management Discharge Plan Note Case Management Discharge Discharge Order Complete? Answers: Yes Patient to Obtain Answers: Other Notes: [facility] Medications Transportation Arranged Answers: [facility] Stretcher Transport will Pick (Date 09/03/2018 12:00 AM & Time) Case Management Transport Answers: Yes Notes: [facility] for [facility] Form Complete Faxed Final Orders Answers: Yes Notes: [facility] Agency/Facility Transfer Answers: Yes Notes: [facility] Report Printed & Faxed to Receiving Agency Family Notified Answers: Yes Notes: [facility] Discharge Comments Notes: Patient is ready for discharge today. Discharge summaries forwarded to [facility] via [employer]. Patient will go stretcher with [facility] due to O2 needs and 2 person assist. [facility] has been notified. Transport arranged for 2:00 PM (14:00). No further needs. Date Signed: 09/03/2018 11:42 AM Electronically Signed By:Kecia Barrera LCSW Intervention Information Intervention Type:*IM-Signed Date of Service:09/03/2018 10:36 AM Patient Type:Inpatient Staff Member:Valentina Hernandez Hours: Discipline: Severity: Comment:
[2018-09-03] MEDS: TAMSULOSIN HCL 0.4 MG CAP PO SCH (13:02)
[2018-09-03] MEDS: WARFARIN SODIUM 7.5 MG TAB PO SCH (13:02)
--- NOTE | 2018-09-03 16:15 | HOSPPROG ---
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 Agree with lovenox and warfarin until INR 2 AF: continue BB clinically in sinus warfarin restarted #Mild ABLA: INR daily until 2 pain: well controlled AHRF: likely atelectasis Disp: DC to SNF today. at bedside, questions answered Subjective: pain in left knee. Less tired. Had BM Objective: Vital Signs Temp Pulse Resp BP Pulse Ox 36.8 C 95 14 106/74 92 09/03/18 08:00 09/03/18 08:00 09/03/18 08:00 09/03/18 08:00 09/03/18 14:00 Laboratory Results 09/01/18 06:00 09/03/18 05:23 09/02/18 09/03/18 09/04/18 05:59 05:59 05:59 Intake Total 577 413 2114 Output Total 750 975 Balance -25 -175 1140 PT 17.4 SEC (12.0-15.0) H 09/03/18 05:23 INR 1.41 (0.83-1.16) H 09/03/18 05:23 - Time Spent With Patient Time Spent with Patient: greater than 25 minutes Time Spent with Patient: Greater than 25 minutes spent on this patients care, greater than 50% of time spent counseling, educating, and coordinating care regarding the above mentioned plan. - Physical Exam Constitutional: obese Eyes: PERRL Ears, Nose, Mouth, Throat: moist mucous membranes Cardiovascular: regular rate and rhythym Respiratory: no respiratory distress, other Gastrointestinal: normoactive bowel sounds Genitourinary: No collins in urethra Musculoskeletal: full muscle strength, other (right knee wrapped. 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
--- NOTE | 2018-09-06 18:59 | GDS ---
ADMIT DIAGNOSIS: Right knee degenerative joint disease. DISCHARGE DIAGNOSIS: Right knee degenerative joint disease. PROCEDURE: Right total knee arthroplasty. HISTORY OF PRESENT ILLNESS: This is a 77-year-old gentleman with end-stage arthritis to his right kn ee. He presented for elective total knee replacement. HOSPITAL COURSE: The patient was admitted to the floor after uncomplicated total knee replacement. He had a protracted course given very slow progression with physical therapy and weakness but had no specific complications. He was seen and evaluated by the hospitalist service through that time. Ult imately a SNF placement was pursued given his slow movement with physical therapy. At the time of garrison pool, he is tolerating an oral diet. Pain was well controlled on oral medicines. He is voiding w ithout difficulty. Dressing is clean, dry, and intact. He has negative Homans. X-rays are stable wi th anatomic alignment. DISCHARGE MEDICATIONS: Tylenol 650 mg p.o. q.4 hours p.r.n. pain, Lovenox 30 mg subcu twice daily, a nd warfarin 7.5 mg daily given the previous history of blood clots. DISPOSITION: To a subacute nursing facility. FOLLOWUP: In 2 weeks. /[id number]/MODL
--- NOTE | 2018-09-06 19:09 | GOP ---
DATE OF OPERATION: 08/30/2018 SURGEON: Praneeth Juarez MD MARKETING CLERK: Chilo Hamlin, NUCLEAR EQUIPMENT TEST ENGINEER, TELEPHONIC RN, who was medical necessity for the entirety of the case. PREOPERATIVE DIAGNOSIS: Right knee degenerative joint disease. POSTOPERATIVE DIAGNOSIS: Right knee degenerative joint disease. PROCEDURE PERFORMED: Right total knee arthroplasty, MAKOplasty. FINDINGS: ESTIMATED BLOOD LOSS: Minimal. INDICATIONS: This is a 77-year-old gentleman with end-stage arthritis to his right knee. He has dorothy led all attempts at conservative management. I have recommended operative intervention with total kn ee replacement. He understood the risks, benefits, and alternatives. He presents for left total kne e replacement today. DESCRIPTION OF PROCEDURE: The patient was identified in the preanesthesia area. The right knee agustín rly demarcated as the operative site with indelible marker. He was given 2 g of Ancef intravenously en route to the operative suite. In the OR, spinal anesthetic was placed followed by sedation. He w as positioned in the supine position. A tourniquet was applied to the upper thigh. The appropriate time-out procedure was carried out. The limb was exsanguinated with Esmarch bandage. A standard ant erior midline incision was made. Thick subcutaneous flaps were elevated, followed by medial parapate llar arthrotomy. Subperiosteal elevation was carried out to the mid coronal plane and retractors wer e placed. The knee demonstrated tricompartmental arthritis. Decision was made to proceed with total knee replacement. Two pins were then placed across the medial to lateral aspect of the femur. Femor al reference array affixed followed by the femoral checkpoint. A separate percutaneous incision was made over the tibia and 2 pins were placed with the tibial reference array and the tibial check point placed. The bony landmarks were entered into the computer in standard fashion. The previous osteop hytes were sharply excised. The knee was balanced through the flexion extension with the MAKOplasty software. Using the MAKOplasty robot, resections were made for a size 6 femur, size 7 tibia, trial r eduction was carried out. A size 7 tibia was placed. However this did not achieve stable purchase a nd was removed. The bony surface was thoroughly cleansed and dried, and the size 7 stem cemented int o position. Once the cement had fully cured and all margin of cement was withdrawn. Attention was r eturned to the femur which was impacted in a press-fit technique. A 7 x 11 mm thick polyethylene spa cer was then placed. This allowed full flexion and extension of the knee with no instability through the flexion-extension arc. The patella was then everted, cut in a freehand cutting technique and dr ill holes made for a size 38 mm metal back poly patella. The knee cap was taken through flexion-exte nsion arc and tracked centrally without subluxation. The wound was copiously irrigated. The medial parapatellar arthrotomy closed using #1 Ethibond suture. The knee instilled with a joint cocktail of ropivacaine, morphine, Toradol, and epinephrine. The knee was injected with platelet-rich plasma so lution. Subcutaneous tissue closed using 2-0 Monocryl and the skin closed using Zip Line closure and overlying soft dressing with Pb wrap was applied. The patient was awakened, extubated, taken to re covery room in good and stable condition. TOTAL TOURNIQUET TIME: 65 minutes. COMPLICATIONS: Cemented tibial component instead of press fit. IMPLANTS: Rose Triathlon posterior stabilized femoral component size 6, size 7 tibia, 7 x 11 mm t ibial bearing insert, asymmetric patella 38 mm. DISPOSITION: To the recovery room, then the floor. He will follow standard postoperative recovery. /[id number]/MODL
== END 2018-09-03 14:21 | DRG 470 ==
LOC: F3N 05:48
PROVIDERS: ADMIT Orthopaedic Surgery; ATTEND Orthopaedic Surgery
DX: M17.11 Unilateral primary osteoarthritis, right knee (principal); D62 Acute posthemorrhagic anemia; R06.2 Wheezing; I10 Essential (primary) hypertension; I48.0 Paroxysmal atrial fibrillation; N40.0 Benign prostatic hyperplasia without lower urinary tract symptoms; Z85.72 Personal history of non-Hodgkin lymphomas; Z98.1 Arthrodesis status; Z86.718 Personal history of other venous thrombosis and embolism; Z86.711 Personal history of pulmonary embolism; Z79.01 Long term (current) use of anticoagulants; Z87.01 Personal history of pneumonia (recurrent)
CPT/HCPCS: 97110-GP; 97116-GP; 97162-GP; 97166-GO; 97530-GO; 97530-GP; 97535-GO; C1713; G8978-GP-CK; G8979-GP-CI; G8987-GO-CJ; G8988-GO-CI; J0171; J0690; J1100; J1642; J1650; J1885; J2250; J2270; J2704; J2795; J3010; J7613

== ENCOUNTER → 2018-10-02 | Outpatient (CLI) | payer OTHER | LOC: FIMAGING 12:14 | PROVIDERS: ATTEND Internal Medicine Hematology & Oncology | DX: C85.89 Other specified types of non-Hodgkin lymphoma, extranodal and solid organ sites (principal); C83.39 Diffuse large B-cell lymphoma, extranodal and solid organ sites; C79.31 Secondary malignant neoplasm of brain; G31.9 Degenerative disease of nervous system, unspecified | CPT/HCPCS: 70553; A9585; J1642 ==

== ENCOUNTER → 2018-10-10 | Outpatient (CLI) | payer OTHER | LOC: BMCIMAGING 10:22 | PROVIDERS: ATTEND Physician Assistant | DX: Z47.1 Aftercare following joint replacement surgery (principal); Z96.651 Presence of right artificial knee joint ==

== ENCOUNTER → 2018-11-21 | Outpatient (CLI) | payer OTHER | LOC: BMCIMAGING 12:55 | PROVIDERS: ATTEND Orthopaedic Surgery | DX: Z47.1 Aftercare following joint replacement surgery (principal); Z96.651 Presence of right artificial knee joint ==

== ENCOUNTER → 2019-02-20 | Outpatient (CLI) | payer OTHER | LOC: BMCIMAGING 08:21 | PROVIDERS: ATTEND Orthopaedic Surgery | DX: Z47.1 Aftercare following joint replacement surgery (principal); Z96.651 Presence of right artificial knee joint ==

== ENCOUNTER → 2019-03-25 | Outpatient (CLI) | payer OTHER | LOC: FIMAGING 09:46 | PROVIDERS: ATTEND Internal Medicine Hematology & Oncology | DX: C83.39 Diffuse large B-cell lymphoma, extranodal and solid organ sites (principal); C85.89 Other specified types of non-Hodgkin lymphoma, extranodal and solid organ sites; G31.9 Degenerative disease of nervous system, unspecified; J01.00 Acute maxillary sinusitis, unspecified | CPT/HCPCS: 70553; A9585; J1642 ==